=== PATIENT | female | born 2000 | race Caucasian/White ===

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

== ENCOUNTER 2018-01-16 18:31 | Emergency (ER) | payer SELFPAY ==
[2018-01-16 19:16] VITALS: BP 129/72
--- NOTE | 2018-01-16 20:26 | ED ---
Psychiatric Complaint - HPI Summary HPI Summary: 17 yr old with complaint of fatigue, loss of interest in doing things, feeling sad, insomnia, having dizziness at times. She weighed 122 lbs in October. She denies thoughts of self harm; denies ever being hospitalized for mental health. She has not had abdominal pain. She simply does not feel like eating. She vomited once a couple days ago. She has had one when 14 yrs old and had ETP. - History Of Current Complaint Chief Complaint: UCGeneralIllness Time Seen by Provider: 01/16/18 19:52 Hx Last Menstrual Period: nexplanon - Allergies/Home Medications Allergies/Adverse Reactions: Allergies Allergy/AdvReac Type Severity Reaction Status Date / Time No Known Allergies Allergy Verified 01/16/18 19:03 Home Medications: Home Medications Ibuprofen TAB* [Motrin TAB* 400 MG] 400 mg Q4HR PRN 01/16/18 [History Confirmed 01/16/18] PMH/Surg Hx/FS Hx/Imm Hx Respiratory History: Reports: Hx Asthma Infectious Disease History: No Infectious Disease History: Denies: Traveled Outside the [place] in Last 30 Days - Family History Known Family History: Positive: None - Social History Alcohol Use: None Substance Use Type: Reports: None Smoking Status (MU): Former Smoker Type: Cigarettes Have You Smoked in the Last Year: Yes Review of Systems Positive: Fatigue. Negative: Fever Negative: Blurred Vision Negative: Sore Throat, Nasal Discharge Negative: Palpitations, Chest Pain Negative: Shortness Of Breath, Cough Positive: Vomiting, Nausea. Negative: Abdominal Pain Positive: no symptoms reported Negative: Arthralgia, Myalgia Negative: Rash Negative: Headache, Weakness, Paresthesia, Numbness, Syncope, Slurred Speech Positive: Anxious, Depressed All Other Systems Reviewed And Are Negative: Yes Physical Exam Triage Information Reviewed: Yes Vital Signs On Initial Exam: Initial Vitals Temp Pulse Resp BP Pulse Ox 99.9 F 70 16 129/72 100 01/16/18 19:04 01/16/18 19:04 01/16/18 19:04 01/16/18 19:04 01/16/18 19:04 Vital Signs Reviewed: Yes Appearance: Positive: Well-Appearing, No Pain Distress Skin: Positive: Warm, Skin Color Reflects Adequate Perfusion Head/Face: Positive: Normal Head/Face Inspection Eyes: Positive: EOMI ENT: Positive: Normal ENT inspection, Pharynx normal, TMs normal Dental: Positive: Cervical Lymphadenopathy - symmetric anterior superior cervical nodes present. Neck: Positive: Supple, Nontender Respiratory/Lung Sounds: Positive: Clear to Auscultation, Breath Sounds Present Cardiovascular: Positive: RRR. Negative: Murmur Abdomen Description: Positive: Nontender, No Organomegaly. Negative: CVA Tenderness (R), CVA Tenderness (L) Musculoskeletal: Positive: Strength/ROM Intact Neurological: Positive: Sensory/Motor Intact, Alert, Oriented to Person Place, Time, CN Intact II-III, Speech Normal Psychiatric: Positive: Depressed - appear a little sad and soft spoken AVPU Assessment: Alert - [place] Coma Scale Best Eye Response: 4 - Spontaneous Best Motor Response: 6 - Obeys Commands Best Verbal Response: 5 - Oriented Coma Scale Total: 15 Diagnostics - Vital Signs Vital Signs Temp Pulse Resp BP Pulse Ox 01/16/18 19:04 99.9 F 70 16 129/72 100 - Laboratory Lab Results: Lab Results 01/16/18 01/16/18 Range/Units 20:08 20:10 POC Urine Color Yellow POC Urine Clarity Clear POC Urine pH 5.5 (5-9) POC Ur Specif [place] 1.025 (1.010-1.030) POC Urine Protein Negative (Negative) POC Ur Glucose (UA) Negative (Negative) POC Urine Ketones 1+ A (Negative) POC Urine Blood Trace-intact A (Negative) POC Urine Nitrite Negative (Negative) POC Urine Bilirubin Negative (Negative) POC Urine Urobilinogen 0.2 (Negative) POC U Leukocyte Esteras Negative (Negative) POC Ur Test Negative (Negative) Lab Statement: Any lab studies that have been ordered have been reviewed, and results considered in the medical decision making process. Course/Dx - Course Course Of Treatment: Neg , and trace ketone in urine. She has had a 7 pound weight loss. I have recommended she go to the ER for further evaluation for medical screening labs and likely a psych consult if negative work up. She is not homicidal or suicidal and not risk to self. - Differential Dx/Clinical Impression Provider Diagnosis: Depressed mood, Insomnia Discharge - Sign-Out/Discharge Documenting (check all that apply): Discharge/Admit/Transfer - Discharge Plan Condition: Good Disposition: TRANS HIGHER LVL OF CARE FAC Patient Education Materials: Dysthymic Disorder (ED), Suicide Prevention for Children and Adolescents (ED), Depression in Adolescents (ED), Anorexia Nervosa in Adolescents (ED) Referrals: Caio Martin MD [Primary Care Provider] - Additional Instructions: You need to go to the ER for further evaluation of your condition. You will need screening labs to rule out any medical issues and likely a mental health consult. - Billing Disposition and Condition Condition: GOOD Disposition: Trans Higher Lvl of Care Fac
== END 2018-01-16 20:37 | disposition short-term general hospital (02) ==
LOC: UCCORT 18:31
DX: F32.89 Other specified depressive episodes (principal); G47.00 Insomnia, unspecified
CPT/HCPCS: 81003; 84702; 99212; G0463

== ENCOUNTER 2018-12-16 17:27 | Emergency (ER) | payer OTHER | END 2018-12-16 17:59 | disposition left against medical advice (07) | LOC: UCCORT 17:27 | DX: H93.90 Unspecified disorder of ear, unspecified ear (principal); R10.9 Unspecified abdominal pain; Z53.21 Procedure and treatment not carried out due to patient leaving prior to being seen by health care provider ==

== ENCOUNTER 2019-09-14 14:31 | Emergency (ER) | payer OTHER ==
[2019-09-14 15:55] LABS: Influenza B Molecular POSITIVE (Negative)
[2019-09-14 16:09] VITALS: BP 127/81
[2019-09-14] MEDS ORDERED: Acetaminophen TAB* 325 MG PO ONE (16:27)
--- NOTE | 2019-09-14 16:46 | UC ---
FLU HPI - HPI Summary HPI Summary: Pt presents with c/o sudden onset of fever, chills cough, nasal congestion X 2 days. - History of Current Complaint Chief Complaint: UCGeneralIllness Stated Complaint: BODY ACHES,NAUSEA,NO APETITE Time Seen by Provider: 09/14/19 16:42 Hx Obtained From: Patient Hx Last Menstrual Period: 03/26/19 ?: No Onset/Duration: Sudden Onset, Lasting Days, Still Present Severity Currently: Moderate Severity Initially: Moderate Pain Intensity: 8 Associated Signs & Symptoms: Positive: Fever, Myalgia, Cough, Nasal Congestion, Headache Related Hx: Possible Flu/Infectious Exposure - Risk Factors Influenza Risk Factors: Negative - Allergy/Home Medications Allergies/Adverse Reactions: Allergies Allergy/AdvReac Type Severity Reaction Status Date / Time No Known Allergies Allergy Verified 09/14/19 16:08 Home Medications: Home Medications D-Methorphan/PE/Acetaminophen [Daytime Cold Multi-Symp Gelcap] 1 each PO ONCE PRN 09/14/19 [History Confirmed 09/14/19] PMH/Surg Hx/FS Hx/Imm Hx Previously Healthy: Yes - Surgical History Surgical History: None - Family History Known Family History: Positive: None, Unknown - adopted, Cardiac Disease - Social History Occupation: Employed Full-time - pt is supposed to start new job tomorrow a [employer] Lives: With Family Alcohol Use: Occasionally Substance Use Type: Marijuana Substance Use Comment - Amount & Last Used: occasionally Smoking Status (MU): Light Every Day Tobacco Smoker Type: Cigarettes Have You Smoked in the Last Year: Yes - Immunization History Most Recent Influenza Vaccination: none Most Recent Tetanus Shot: UTD Hx Tetanus, Diphtheria Vaccination: Yes Vaccination Up to Date: Yes Review of Systems All Other Systems Reviewed And Are Negative: Yes Constitutional: Positive: Fever, Chills, Fatigue Skin: Positive: Negative Eyes: Positive: Negative ENT: Positive: Nasal Discharge, Sinus Congestion Respiratory: Positive: Cough Cardiovascular: Positive: Negative Gastrointestinal: Positive: Negative Genitourinary: Positive: Negative Motor: Positive: Negative Neurovascular: Positive: Negative Musculoskeletal: Positive: Myalgia Neurological: Positive: Headache Psychological: Positive: Negative Is Patient Immunocompromised?: No Physical Exam Triage Information Reviewed: Yes Appearance: Ill-Appearing Vital Signs: Initial Vital Signs Temp 101.2 F 09/14/19 16:04 Pulse 80 09/14/19 16:04 Resp 15 09/14/19 16:04 BP 127/81 09/14/19 16:04 Pulse Ox 98 09/14/19 16:04 Vital Signs Reviewed: Yes ENT: Positive: Nasal congestion Dental Exam: Normal Neck exam: Normal Respiratory Exam: Normal Cardiovascular Exam: Normal Musculoskeletal Exam: Normal Neurological Exam: Normal Psychological Exam: Normal Skin Exam: Normal Flu Course/Dx - Differential Dx/Diagnosis Differential Diagnosis/HQI/PQRI: Influenza, Upper Respiratory Infection Provider Diagnosis: Influenza B Discharge ED - Sign-Out/Discharge Documenting (check all that apply): Patient Departure All imaging exams completed and their final reports reviewed: No Studies - Discharge Plan Condition: Stable Disposition: HOME Prescriptions: Oseltamivir CAP* [Tamiflu CAP*] 75 mg PO Q12H #10 cap Patient Education Materials: Influenza (ED) Forms: *Work Release Referrals: Caio Martin MD [Primary Care Provider] - If Needed - Billing Disposition and Condition Condition: STABLE Disposition: Home
== END 2019-09-14 16:54 | disposition home or self-care (01) ==
LOC: UCCORT 14:31
DX: J10.1 Influenza due to other identified influenza virus with other respiratory manifestations (principal); F17.210 Nicotine dependence, cigarettes, uncomplicated
CPT/HCPCS: 87651; 99212; A9270-GY; G0463

== ENCOUNTER 2019-09-26 11:35 | Emergency (ER) | payer SELFPAY ==
[2019-09-26 11:55] VITALS: BP 133/84
--- NOTE | 2019-09-26 12:15 | UC ---
Cardiac HPI - HPI Summary HPI Summary: left sided chest pain x 1 day woke up this morning for pain pain is 3 out of 10 , no radiation worse with deep breathing, and changing position denies any sob, no fever, no chills was diagnosed with Flu last week and been coughing a lot - History of Current Complaint Chief Complaint: UCChestPain Stated Complaint: LEFT SIDE CHEST/RIB PAIN Time Seen by Provider: 09/26/19 11:51 Hx Obtained From: Patient Hx Last Menstrual Period: 09/25/2019 Onset/Duration: Gradual Onset, Lasting Days - 1, Still Present Timing: Constant Initial Severity: Moderate Current Severity: Moderate Pain Intensity: 3 Chest Pain Location: Discrete at: - left side Character: Pressure/Squeezing, Sharp/Stabbing Aggravating Factor(s): Movement, Deep Breaths Alleviating Factor(s): Rest Associated Signs & Symptoms: Positive: Chest Pain, Cough. Negative: Headaches, Numbness, Tingling, Dizziness, SOB, Fever, Diaphoresis, Nausea/Vomiting, Back Pain, Abdominal Pain, Calf Pain/Swelling - Allergy/Home Medications Allergies/Adverse Reactions: Allergies Allergy/AdvReac Type Severity Reaction Status Date / Time No Known Allergies Allergy Verified 09/26/19 11:55 Home Medications: Home Medications Acetaminophen [Acetaminophen Extra Strength] 500 mg PO Q6H PRN 09/26/19 [ History Confirmed 09/26/19] PMH/Surg Hx/FS Hx/Imm Hx Previously Healthy: Yes - Surgical History Surgical History: None - Family History Known Family History: Positive: None, Unknown - adopted, Cardiac Disease, Non- Contributory - Social History Alcohol Use: Occasionally Substance Use Type: Marijuana Substance Use Comment - Amount & Last Used: occasionally Smoking Status (MU): Former Smoker Type: Cigarettes Have You Smoked in the Last Year: Yes - Immunization History Most Recent Influenza Vaccination: none Most Recent Tetanus Shot: UTD Hx Tetanus, Diphtheria Vaccination: Yes Vaccination Up to Date: Yes Review of Systems All Other Systems Reviewed And Are Negative: Yes Is Patient Immunocompromised?: No Physical Exam Triage Information Reviewed: Yes Appearance: Well-Appearing, No Pain Distress, Well-Nourished Vital Signs: Initial Vital Signs Temp 98.5 F 09/26/19 11:50 Pulse 60 09/26/19 11:50 Resp 24 09/26/19 11:50 BP 133/84 09/26/19 11:50 Pulse Ox 100 09/26/19 11:50 Vital Signs Reviewed: Yes Eye Exam: Normal Eyes: Positive: Conjunctiva Clear ENT: Positive: Normal ENT inspection, Hearing grossly normal, Pharynx normal Neck: Positive: Supple, Nontender, No Lymphadenopathy Respiratory: Positive: Lungs clear, Normal breath sounds, No respiratory distress, No accessory muscle use, Other: - tenderness left ribs 4/5/6 , pain with movement - Clinical Impression Provider Diagnosis: Intercostal muscle strain Discharge ED - Sign-Out/Discharge Documenting (check all that apply): Patient Departure All imaging exams completed and their final reports reviewed: No Studies - Discharge Plan Condition: Stable Disposition: HOME Prescriptions: Benzonatate CAP* [Tessalon 100 MG CAP*] 100 mg PO TID PRN #15 cap PRN Reason: Cough Naproxen [Naproxen 500 mg tab] 500 mg PO BID #14 tablet Patient Education Materials: Chest Wall Pain (ED) Referrals: Caio Martin MD [Primary Care Provider] - 7 Days - Billing Disposition and Condition Condition: STABLE Disposition: Home
== END 2019-09-26 12:15 | disposition home or self-care (01) ==
LOC: UCCORT 11:35
DX: S29.011A Strain of muscle and tendon of front wall of thorax, initial encounter (principal); Z87.891 Personal history of nicotine dependence; X58.XXXA Exposure to other specified factors, initial encounter; Y92.9 Unspecified place or not applicable
CPT/HCPCS: 93005; 99212; G0463